=== PATIENT | male | born 1950 | race Caucasian/White ===

== ENCOUNTER 2025-04-02 14:26 | Outpatient (REF) | payer MEDICARE, MEDICAID, SELFPAY ==
[2025-04-02 15:16] LABS: Hematocrit 33.3 % (42.0-54.0); Hemoglobin 9.5 g/dL (14.0-18.0); Mean Corpuscular HGB Conc 28.5 g/dL (29.9-35.2); Mean Corpuscular Hemoglobin 23.6 pg (25.9-34.0); Mean Corpuscular Volume 82.8 fL (80.0-94.0); Mean Platelet Volume 10.7 fL (9.5-13.5); Platelet Count 405 10^3/uL (150-450); Red Blood Count 4.02 10^6/uL (4.70-6.10); Red Cell Distribution Width 18.8 % (11.0-15.0); White Blood Count 23.6 10^3/uL (4.0-11.0)
[2025-04-02 15:44] LABS: Anisocytosis 1+; Basophils Abs Manual 0.23 10^3/uL (0.00-0.10); Eosinophils Absolute Manual 1.65 10^3/uL (0.00-0.70); Hypochromasia 1+; Monocytes Absolute Manual 0.47 10^3/uL (0.30-0.80); Segmented Neut Absolute Manual 14.63 10^3/uL (1.4-6.5); Smudge Cells SEEN
== END 2025-04-02 14:27 | disposition home or self-care (01) ==
LOC: LAB 14:26
PROVIDERS: PCP Internal Medicine; Visit Provider Internal Medicine
DX: D64.9 Anemia, unspecified (principal)
CPT/HCPCS: 36415; 85007; 85027